=== PATIENT | female | born 1975 | race Two or more races ===

== ENCOUNTER 2024-04-06 00:07 | Emergency (ER) | payer MEDICAID, OTHER ==
[~2024-04-06] VITALS: Ht 167.6 cm; Wt 78.5 kg
[2024-04-06] MEDS: KETOROLAC TROMETH 30 MG/ML 1ML VIAL IM ONE (02:11)
[2024-04-06 02:33] VITALS: BP 142/80; PULSE 68; RESP 16; TEMP 97.9; O2SAT 99
[2024-04-06] MEDS ORDERED: IBUP-1455 PO (02:46)
== END 2024-04-06 02:52 | disposition home or self-care (01) ==
LOC: ER 00:07
DX: R51.9 Headache, unspecified (principal); W18.09XA Striking against other object with subsequent fall, initial encounter; Y93.89 Activity, other specified; Y92.89 Other specified places as the place of occurrence of the external cause; Y99.8 Other external cause status
CPT/HCPCS: 96372; 99283; J1885